=== PATIENT | male | born 1960 | race Caucasian/White ===

== ENCOUNTER 2017-10-08 08:09 | Emergency (ER) | payer BC ==
[2017-10-08] MEDS: KETOROLAC 30 MG/ML INJ. IV (08:44)
[2017-10-08] MEDS: FAMOTIDINE 20 MG TABLET. PO (08:45)
[2017-10-08 08:46] LABS: ADD MAN DIFF? NO
[2017-10-08 08:48] LABS: BASO # 0.1 x10^3/uL (0.0-0.2); BASO % 1 % (0-3); EOS # 0.1 x10^3/uL (0.0-0.7); EOS % 2 % (0-3); HEMATOCRIT 47.9 % (39.0-53.0); HEMOGLOBIN 16.4 g/dL (13.0-17.5); LYMPH # 2.4 x10^3/uL (1.0-4.8); LYMPH % 36 % (24-48); MEAN CORPUSCULAR HEMOGLOBIN 32 pg (25-35); MEAN CORPUSCULAR HGB CONC 34 g/dL (31-37); MEAN CORPUSCULAR VOLUME 93 fL (79-100); MONO # 0.4 x10^3/uL (0.0-1.1); MONO % 6 % (0-9); NEUT # 3.7 x10^3uL (1.8-7.7); NEUT % 56 % (31-73); PLATELET COUNT 269 x10^3/uL (140-400); RED BLOOD COUNT 5.17 x10^6/uL (4.30-5.70); WHITE BLOOD COUNT 6.7 x10^3/uL (4.0-11.0)
[2017-10-08 08:50] LABS: BILIRUBIN,URINE NEGATIVE (NEG); CLARITY,URINE CLEAR; COLOR,URINE YELLOW; GLUCOSE,URINE NEGATIVE (NEG); NITRITE,URINE NEGATIVE (NEG); PH,URINE 6.5; PROTEIN,URINE NEGATIVE (NEG-TRACE); UROBILINOGEN,URINE 0.2 mg/dL (0.2 mg/dL)
[2017-10-08 08:56] LABS: BACTERIA,URINE FEW /HPF (0-FEW); RBC,URINE 0 /HPF (0-2); WBC,URINE OCC /HPF (0-4)
[2017-10-08 08:57] LABS: BARBITURATES NEG (NEG); BENZODIAZEPINES NEG (NEG); CANNABINOIDS NEG (NEG); COCAINE NEG (NEG); METHADONE NEG (NEG); OPIATES POS (NEG); PHENCYCLIDINE NEG (NEG)
[2017-10-08 08:59] LABS: ANION GAP 9 (6-14); BLOOD UREA NITROGEN 15 mg/dL (8-26); BUN/CREATININE RATIO 15 (6-20); CALCIUM 9.7 mg/dL (8.5-10.1); CARBON DIOXIDE 31 mmol/L (21-32); CHLORIDE 102 mmol/L (98-107); GFR 77.6; GLUCOSE 133 mg/dL (70-99); POTASSIUM 3.9 mmol/L (3.5-5.1); SODIUM 142 mmol/L (136-145)
[2017-10-08 09:04] LABS: AMPHETAMINE/METHAMPHETAMINE NEG (NEG); ETHANOL, URINE NEG (NEG)
[2017-10-08 09:05] LABS: ALBUMIN/GLOBULIN RATIO 1.1 (1.0-1.7); ALK PHOS 63 U/L (46-116); ALT (SGPT) 42 U/L (16-63); AST (SGOT) 20 U/L (15-37); LIPASE 168 U/L (73-393); TOTAL BILIRUBIN 0.6 mg/dL (0.2-1.0); TOTAL PROTEIN 7.5 g/dL (6.4-8.2)
[2017-10-08 09:05] LABS: ETHANOL < 10 mg/dL (0-10)
== END 2017-10-08 10:26 | disposition home or self-care (01) ==
LOC: ER 10:26
DX: N28.9 Disorder of kidney and ureter, unspecified (principal); R10.9 Unspecified abdominal pain
CPT/HCPCS: 36415; 74176; 80053; 80307; 81001; 83690; 85025; 96374; 99285-25; G0480; J1885

== ENCOUNTER → 2017-10-22 | Outpatient (CLI) | payer BC | END | disposition home or self-care (01) | LOC: US 13:40 | DX: N28.1 Cyst of kidney, acquired (principal); K76.0 Fatty (change of) liver, not elsewhere classified; N28.89 Other specified disorders of kidney and ureter; R82.99 Other abnormal findings in urine | CPT/HCPCS: 76770 ==

== ENCOUNTER 2020-04-12 14:30 | Emergency (ER) | payer BC ==
[~2020-04-12] VITALS: Ht 190.5 cm; Wt 80.4 kg
[~2020-04-12 14:30] MED LIST: ALPR0.25 PO; CYCL10TA2 PO
[2020-04-12 14:35] VITALS: BP 188/97
[2020-04-12] MEDS ORDERED: LIDOCAINE 1% PF 2 ML VIAL. INJ ONE (17:00)
[2020-04-12] MEDS ORDERED: CEPH-264 PO (18:02)
--- NOTE | 2020-04-12 18:03 | ED.ADGEN ---
Past Medical History Past Medical History: Anxiety, Hypertension, Other Additional Past Medical Histor: POOR HISTORIAN Past Surgical History: Other Additional Past Surgical Histo: MELANOMA REMOVAL L LEG, FACIAL SURGERY Smoking Status: Never Smoker Alcohol Use: Heavy Drug Use: None General Adult EDM: Chief Complaint: LACERATION/AVULSION HPI: HPI: Patient is a 60 year old male, accompanied by his daughter, who presents to the emergency room with complaints of a laceration to the palmar aspect of his right fifth digit over the PIP. Patient states he was hiking with his daughter when a blade of thick tall grass cut his finger. He denies any decreased extension, flexion, or strength of the affected digit. He states that the affected area is tingling. He currently rates his pain a 7 out of 10 on pain scale, he denies any alleviating factors, the pain is worse if the area is touched. Patient re ports that he was treated at after a traumatic fall about a month ago and he denies need for a tetanus immunization.. Review of Systems: Review of Systems: Complete ROS is negative unless otherwise noted in HPI. Current Medications: Current Medications Medications (Trade) Dose Ordered Sig/Che Start Time Stop Time Status Last Admin Dose Admin Lidocaine HCl (Xylocaine-Mpf 1% 2ml Vial) 4 ml 1X ONCE 04/12/20 17:00 04/12/20 17:01 DC 04/12/20 17:14 4 ML Allergies: Allergies: Allergies Coded Allergies Type Severity Reaction Last Updated Verified No Known Drug Allergies 12/24/13 No Physical Exam: PE: See Above Constitutional: Well developed, well nourished, no acute distress, non-toxic appearance. [] HENT: Normocephalic, atraumatic, bilateral external ears normal, nose normal. [] Eyes: PERRLA, EOMI, conjunctiva normal, no discharge. [] Neck: Normal range of motion, no stridor. [] Cardiovascular:Heart rate regular rhythm Lungs & Thorax: Respirations even and unlabored, no retractions, no respiratory distress Skin: Warm, dry, no erythema, no rash; 2 cm laceration to the palmar aspect of the right fifth digit over the PIP, no visible foreign body, no visible tendon exposure.. [] Extremities: Fifth digit of right hand: Full extension and flexion, normal sensation, no cyanosis, ROM intact, no edema. [] Neurologic: Alert and oriented X 3, no focal deficits noted. [] Psychologic: Affect anxious, judgement normal, mood normal. [] Current Patient Data: Vital Signs: Vital Signs Date Time Temp Pulse Resp B/P (MAP) Pulse Ox O2 Delivery O2 Flow Rate FiO2 04/12/20 14:35 98.5 67 18 188/97 (127) 96 Room Air 98.5 EKG: EKG: [] Heart Score: Risk Factors: Risk Factors: DM, Current or recent (<one month) smoker, HTN, HLP, family history of CAD, obesity. Risk Scores: Score 0 - 3: 2.5% MACE over next 6 weeks - Discharge Home Score 4 - 6: 20.3% MACE over next 6 weeks - Admit for Clinical Observation Score 7 - 10: 72.7% MACE over next 6 weeks - Early Invasive Strategies Radiology/Procedures: Radiology/Procedures: Laceration Repair by me: Anesthesia: 1% lidocaine locally Location: Palmar aspect of the fifth digit of the right hand Tendon/Joint/Nerves: No injury Foreign body: None detected after copious irrigation and exploration with surgical scrub and normal saline Technique: 4 simple Interrupted Sutures with 4-0 Ethilon Complexity: No subcutaneous sutures/mucosal repair/edge excision Post Closure Length: 2 cm Patient's bleeding was easily controlled in the department and there is no indication of anemia. No evidence of compartment syndrome, neurologic injury, vascular injury, open joint, tendon laceration, or foreign body. Patient is appropriate for outpatient follow up. [] Course & Med Decision Making: Course & Med Decision Making I have reviewed the PA/OVERNIGHT CAREGIVER's note and Plan of Care. I was available for consultation as needed during the patient's visit in the emergency department. I agree with the clinical impression, plans and disposition.Pertinent Labs and Imaging studies reviewed. (See chart for details) [] Dragon Disclaimer: Dragon Disclaimer: This electronic medical record was generated, in whole or in part, using a voice recognition dictation system. Departure Departure Impression: Primary Impression: Laceration of finger of right hand without foreign body with damage to nail Disposition: 01 DC HOME SELF CARE/HOMELESS Condition: STABLE Referrals: KIM YOU (PCP) Patient Instructions: Laceration Care, Adult, [id number] Additional Instructions: Fill the prescription take it as directed. Keep the area clean and dry. You may take Tylenol or ibuprofen as needed for pain. Keep the dressing that was placed today on for 24 hours then change the dressing twice a day and apply antibiotic ointment to the area. Follow-up with your primary care doctor, or return to the emergency room in 10-14 days to have the sutures removed, sooner if you develop signs of infection including: redness, warmth, drainage, or a fever. Scripts Cephalexin (KEFLEX) 500 Mg Capsule 500 MG PO BID for 7 Days, #14 CAP 0 Refills Prov: CHIDI GILL APRN 04/12/20 Splinting Splinting : Location: Fifth digit of right hand Pre-Made Type: metal (Aluminum finger splint) Pre-Proc Neuro Vasc Exam: normal Post-Proc Neuro Vasc Exam: normal, unchanged from pre-exam Problem Qualifiers Primary Impression: Laceration of finger of right hand without foreign body with damage to nail Encounter type: initial encounter Finger: little finger Qualified Codes: S61.316A - Laceration without foreign body of right little finger with damage to nail, initial encounter CHIDI GILL APRN Apr 12, 2020 18:03 DECLAN DUKE MD Apr 13, 2020 06:08
== END 2020-04-12 18:33 | disposition home or self-care (01) ==
LOC: ER 14:30
DX: S61.216A Laceration without foreign body of right little finger without damage to nail, initial encounter (principal); F41.9 Anxiety disorder, unspecified; I10 Essential (primary) hypertension; F10.10 Alcohol abuse, uncomplicated; Z98.890 Other specified postprocedural states; W26.8XXA Contact with other sharp object(s), not elsewhere classified, initial encounter; Y93.89 Activity, other specified; Y92.89 Other specified places as the place of occurrence of the external cause; Y99.8 Other external cause status
CPT/HCPCS: 12001; 99283; J3490